=== PATIENT | male | born 1990 | race Caucasian/White ===

== ENCOUNTER 2017-09-22 11:18 | Emergency (ER) | payer OTHER ==
[~2017-09-22] VITALS: Ht 172.7 cm; Wt 79.3 kg
[2017-09-22 11:24] VITALS: BP 123/74; PULSE 76; RESP 16; TEMP 97.8; O2SAT 98
--- NOTE | 2017-09-22 11:35 | PD ---
HPI Chief Complaint: Laceration/Skin Injury Time Seen by Provider: 11:32 Travel History International Travel<30 days: No Contact w/Intl Traveler<30days: No Traveled to known affect area: No History of Present Illness HPI 27 year old [id number] male presents with a laceration to the dorsal right fourth finger. It was sustained when he got his hand pinched between 2 pieces of sheet metal at work this morning. He has pain, aching, worse with palpation. Denies numbness or tingling or range of motion limitation. Last tetanus vaccination unknown. No other complaints. [facility] Social History Alcohol Use: Yes Tobacco Use: No Allergies-Medications (Allergen,Severity, Reaction): Coded Allergies: No Known Allergies (Unverified , 09/22/17) Reported Meds & Prescriptions Reported Meds & Active Scripts Active No Active Prescriptions or Reported Medications Review of Systems Musculoskeletal: Positive: Pain, No: Limited ROM Skin: Positive Other (positive for laceration, pain, bleeding.) Physical Exam Narrative GENERAL: Well-nourished male in no acute distress SKIN: Warm and dry. 1.5 cm jagged laceration to the dorsal surface of the right fourth finger. HEAD: Atraumatic. Normocephalic. EYES: Pupils equal and round. No scleral icterus. No injection or drainage. ENT: No nasal bleeding or discharge. Mucous membranes pink and moist. NECK: Trachea midline. No JVD. CARDIOVASCULAR: Regular rate and rhythm. No murmur appreciated. RESPIRATORY: No accessory muscle use. Clear to auscultation. Breath sounds equal bilaterally. MUSCULOSKELETAL: Skin as noted above. Distal sensation is intact. Capillary refill less than 2 seconds. The patient maintains full range of motion of the right fourth finger. NEUROLOGICAL: Awake and alert. No obvious cranial nerve deficits. Motor grossly within normal limits. Normal speech. Data Data Last Documented VS Vital Signs Date Time Temp Pulse Resp B/P (MAP) Pulse Ox O2 Delivery O2 Flow Rate FiO2 09/22/17 11:24 97.8 76 16 123/74 (90) 98 Orders Orders Finger ([id number]) (09/22/17 ) Lidocaine 1% Inj (Xylocaine 1% Inj) (09/22/17 11:45) Tetanus/Diphtheria Tox Adult (Tetanus/Di (09/22/17 11:45) Splint Or Brace Apply/Monitor (09/22/17 11:58) Finger Splint (09/22/17 ) MDM Medical Decision Making Medical Screen Exam Complete: Yes Emergency Medical Condition: Yes Medical Record Reviewed: Yes Differential Diagnosis Cutaneous laceration versus extensor tendon laceration versus open fracture Narrative Course 27 year old male presents laceration the dorsal right fourth finger. The wound was thoroughly irrigated and explored with no evidence of tendon damage. X-ray imaging reveals no acute abnormalities. Tetanus status updated. The laceration was repaired with sutures, he verbally consented. He is stable for discharge. Procedures Procedure Narrative LACERATION LOCATION: Right fourth finger LENGTH: 1.5 cm NUMBER OF STITCHES/STEVE: 5 REPAIR: The area of the laceration was prepped with Betadine and sterilely draped. The laceration was infiltrated with 1% lidocaine digital block. The wound was copiously irrigated and explored without evidence of foreign body, tendon injury or neurovascular injury. The wound was closed using 5-0 prolene simple interrupted. This was a single layer repair. A sterile dressing was applied. The patient was advised to keep the dressing clean and dry. Patient tolerated the procedure well. Diagnosis Primary Impression: Finger laceration Additional Instructions: Washout soap and water and apply antibiotic cream and clean bandages daily. Minimize use of right fourth finger to prevent wound dehiscence. Return in 10- 14 days for suture removal. Med/Other Pt SpecificInfo: Wound Care Scripts No Active Prescriptions or Reported Meds Disposition: 01 DISCHARGE HOME Condition: Stable Clinton Mims Sep 22, 2017 11:35
[2017-09-22] MEDS ORDERED: TETANUS/DIPHTHERIA TOXOID ADULT 0.5 ML VIAL IM ONE (11:45)
[2017-09-22] MEDS ORDERED: LIDOCAINE HCL 1% 20 ML VIAL INFIL ONE (11:45)
--- NOTE | 2017-09-22 12:58 | RADRPT ---
EXAM DATE/TIME: 09/22/2017 12:11 [facility] COMPARISON: No previous studies available for comparison. INDICATIONS : Right 4th digit laceration. The right ring finger was caught between two pieces of metal. MEDICAL HISTORY : None. SURGICAL HISTORY : None. ENCOUNTER: Initial ACUITY: 1 day PAIN SCORE: 2/10 LOCATION: Right posterior 4th digit. FINDINGS: Examination of the fourth digit of the right hand demonstrates no evidence of fracture or dislocation . No radiopaque foreign bodies are seen. The soft tissues are intact. CONCLUSION: Negative trauma study with no fracture or foreign body. Kaden Grant MD on September 22, 2017 at 12:56 Board Certified Radiologist. This report was verified electronically.
== END 2017-09-22 13:25 | disposition home or self-care (01) ==
LOC: PHEFT 11:18
DX: S61.214A Laceration without foreign body of right ring finger without damage to nail, initial encounter (principal); W23.1XXA Caught, crushed, jammed, or pinched between stationary objects, initial encounter; Y99.0 Civilian activity done for income or pay; Z23 Encounter for immunization
CPT/HCPCS: 12001; 73140; 90471; 90714

== ENCOUNTER 2017-10-04 17:05 | Emergency (ER) | payer OTHER ==
[~2017-10-04] VITALS: Ht 172.7 cm; Wt 80.0 kg
[2017-10-04 17:18] VITALS: BP 129/70; PULSE 68; RESP 16; TEMP 98.6; O2SAT 98
--- NOTE | 2017-10-04 17:50 | PD ---
HPI Chief Complaint: Wound/Suture/Staple Re-Check Time Seen by Provider: 17:43 Travel History International Travel<30 days: No Contact w/Intl Traveler<30days: No Traveled to known affect area: No History of Present Illness HPI 27-year-old male presents to emergency department for suture removal of his right fourth digit. Denies excessive pain, fever, swelling, numbness or tingling. States this occurred approximately 12 days ago and is here to follow- up for suture removal. He has no other complaints or concerns today. PFSH Past Medical History Diminished Hearing: No Social History Alcohol Use: Yes Tobacco Use: No Substance Use: No Allergies-Medications (Allergen,Severity, Reaction): Coded Allergies: No Known Allergies (Unverified , 10/04/17) Reported Meds & Prescriptions Reported Meds & Active Scripts Active No Active Prescriptions or Reported Medications Review of Systems Except as stated in HPI: all other systems reviewed are Neg Physical Exam Narrative GENERAL: Well-nourished, well-developed patient. SKIN: Focused skin assessment warm/dry. HEAD: Normocephalic. EYES: No scleral icterus. No injection or drainage. NECK: Supple, trachea midline. MUSCULOSKELETAL: No cyanosis, or edema. Right dorsal aspect fourth finger- 1-1/2-2 cm laceration with sutures in place. No dehiscence, erythema, exudate. BACK: Without obvious deformity. PSYCHIATRIC: No delusional thought processes. No hallucinations. Data Data Last Documented VS Vital Signs Date Time Temp Pulse Resp B/P (MAP) Pulse Ox O2 Delivery O2 Flow Rate FiO2 10/04/17 17:18 98.6 68 16 129/70 (89) 98 MDM Medical Decision Making Medical Screen Exam Complete: Yes Emergency Medical Condition: Yes Differential Diagnosis Suture removal, laceration wound care, cellulitis Narrative Course 27-year-old male presents to emergency department for suture removal of his right fourth digit. Denies excessive pain, fever, swelling, numbness or tingling. States this occurred approximately 12 days ago and is here to follow- up for suture removal. He has no other complaints or concerns today. Vital signs stable. Physical exam findings consistent with a 27 show male in no acute distress. Right fourth finger with sutures in place without dehiscence. Sutures removed today. Advised on wound care and signs for infection. Steri-Strips placed to reduce possibility of dehiscence. Advised to return for worsening or persistent symptoms. Patient to follow up with his comp or primary care physician. Diagnosis Primary Impression: Encounter for removal of sutures Referrals: Primary Care Physician Additional Instructions: Follow up with your primary care physician within 2-3 days. If your symptoms persist or worsen, return to the emergency department. Keep area clean and dry. You may bathe as normal. You may use [id number] triple antibiotic ointments for your injury daily. If bleeding starts again, applied pressure and elevate the area. If he developed increased redness, swelling, or pain return to the emergency department. Avoid excessive moisture for another 7-10 days. Scripts No Active Prescriptions or Reported Meds Disposition: 01 DISCHARGE HOME Condition: Stable Victoria Schroeder Oct 04, 2017 17:50
== END 2017-10-04 18:08 | disposition home or self-care (01) ==
LOC: PHEFT 17:05
DX: Z48.02 Encounter for removal of sutures (principal)
CPT/HCPCS: 99281